=== PATIENT | female | born 2000 | race American Indian/Alaskan Native ===

== ENCOUNTER 2018-07-14 22:56 | Inpatient (IN) | payer MEDICAID, OTHER ==
[2018-07-15] MEDS ORDERED: LACTATED RINGERS 1,000 ML ONE (00:13)
[2018-07-15] MEDS ORDERED: ZOFRAN IV PRN ×2 (00:30→21:27)
[2018-07-15] MEDS ORDERED: XYLOCAINE 2% INFILTRATI ONE (00:30)
[2018-07-15] MEDS ORDERED: AMPICILLIN/NS 2 GM/100 ML 2 GM/100 ML BAG IV ONE (00:30)
[2018-07-15] MEDS ORDERED: BRETHINE SUB-Q PRN (00:30)
[2018-07-15] MEDS ORDERED: SUBLIMAZE IV PRN (00:30)
[2018-07-15] MEDS ORDERED: CERVIDIL VG ONE (00:30)
[2018-07-15] MEDS ORDERED: MINERAL OIL PO PRN (00:30)
[2018-07-15] MEDS ORDERED: PITOCin/NS 30 UNIT/500ML 30 UNITS/500 ML BAG IV SCH ×2 (01:00→09:30)
[2018-07-15] MEDS ORDERED: PITOCin/NS 20 UNIT/1000ML DRIP 20 UNITS/1,000 ML BAG IV SCH ×2 (01:00→20:21)
[2018-07-15 01:02] LABS: Basophils % (Auto) 0.3 % (0.0-1.8); Eosinophils # (Auto) 0.1 K/mm3 (0.0-0.4); Hematocrit 36.2 % (30.3-42.9); Hemoglobin 11.8 gm/dl (10.1-14.3); Lymphocytes # (Auto) 1.5 K/mm3 (1.2-5.4); Lymphocytes % (Auto) 18.5 % (13.4-35.0); Mean Corpuscular HGB Conc 33 % (30-34); Mean Corpuscular Volume 85 fl (79-97); Monocytes # (Auto) 0.4 K/mm3 (0.0-0.8); Monocytes % (Auto) 5.3 % (0.0-7.3); Platelet Count 153 K/mm3 (140-440); Red Blood Count 4.27 M/mm3 (3.65-5.03); Red Cell Distribution Width 16.9 % (13.2-15.2)
[2018-07-15 01:23] LABS: Amorphous Crystals,Urine Few; Bacteria,Urine 1+ /HPF (Negative); Bilirubin,Urine NEG (Negative); Blood,Urine MOD (Negative); Color,Urine Straw (Yellow); Hyaline Casts,Urine 3 /LPF; Mucus,Urine 2+ /HPF; Protein,Urine <15 mg/dL mg/dL (Negative); Urobilinogen,Urine < 2.0 mg/dL (<2.0)
--- NOTE | 2018-07-15 01:27 | History and Physical Report ---
History of Present Illness Date of examination: 07/14/18 (SROM clear fluid) Date of admission: 07/15/18 00:47 History of present illness: @ 38 weeks with SROM 07-14-18 @ 2200 clear fluid Pt was receiving care from in [facility] signed and faxed MED HX: asthma SurgHX: repair of left femur STD: Chlamydia treated Denies: smoking, drinking, drug use Pt denies complications in States she passed her GTT and per pt is GBS negative Past History - Obstetrical History Expected Date of Delivery: 07/27/18 Actual Gestation: 38 Week(s) 2 Day(s) : 1 Para: 0 Hx # Term Pregnancies: 0 Number of Pregnancies: 0 Spontaneous Abortions: 0 Induced : 0 Number of Living Children: 0 Medications and Allergies Allergies Allergy/AdvReac Type Severity Reaction Status Date / Time pineapple Allergy Swelling Verified 07/14/18 23:07 Home Medications Medication Instructions Recorded Confirmed Last Taken Type Vits96/Iron Fum/Folic 1 tab PO QDAY 07/14/18 07/14/18 07/13/18 History [ Tablet] Active Meds: Active Medications Ephedrine Sulfate (Ephedrine Sulfate) 10 mg IV Q2M PRN PRN Reason: Hypotension Fentanyl (Sublimaze) 100 mcg IV Q2H PRN PRN Reason: Labor Pain Ampicillin Sodium (Ampicillin/Ns 1 Gm/50 Ml) 1 gm in 50 mls @ 100 mls/hr IV Q4HR SISSY; Protocol Ampicillin Sodium (Polycillin/Ns 2 Gm/100 Ml) 2 gm in 100 mls @ 100 mls/hr IV ONCE ONE; Protocol Stop: 07/15/18 01:29 Lactated Ringer's (Lactated Ringers) 1,000 mls @ 125 mls/hr IV DIRECT SISSY Oxytocin/Sodium Chloride (Pitocin/Ns 20 Unit/1000ml Drip) 20 units in 1,000 mls @ 125 mls/hr IV DIRECT SISSY Oxytocin/Sodium Chloride (Pitocin/Ns 30 Unit/500ml) 30 units in 500 mls @ 1 mls/hr IV TITR SISSY; Protocol Mineral Oil (Mineral Oil) 30 ml PO QHS PRN PRN Reason: Constipation Ondansetron HCl (Zofran) 4 mg IV Q8H PRN PRN Reason: Nausea And Vomiting Terbutaline Sulfate (Brethine) 0.25 mg SUB-Q ONCE PRN PRN Reason: Hyperstimulation/Hypertonicity - Vital Signs Vital signs: Vital Signs Temp Resp 98.5 F 22 07/14/18 23:07 07/14/18 23:07 Temp Pulse Resp BP Pulse Ox 98.5 F 83 22 111/72 07/14/18 23:07 07/14/18 23:18 07/14/18 23:07 07/14/18 23:18 - Physical Exam Breasts: Positive: deferred Cardiovascular: Regular rate, Normal S1, Normal S2 Lungs: Positive: Normal air movement Abdomen: Positive: normal appearance, soft, normal bowel sounds. Negative: distention, tenderness Genitourinary (Female): Positive: normal external genitalia, normal perenium Vulva: both: normal Vagina: Positive: normal moisture. Negative: discharge Cervix: Negative: lesion, discharge Uterus: Positive: normal size, normal contour Adnexa: both: normal Anus/Rectum: Positive: normal perianal skin, heme negative. Negative: rectal mass, hemorrhoids Extremities: Positive: edema Deep Tendon Reflex Grade: Normal +2 - Obstetrical FHR: category 1 Uterine Contraction Monitor Mode: External Cervical Dilatation: 1 (gross rupture membranes clear) Cervical Effacement Percentage: 30 (US confirms vertex) station: -3 Uterine Contraction Pattern: Regular Uterine Tone Measurement Phase: Resting Uterine Contraction Intensity: Mild Results Result Diagrams: 07/15/18 00:25 Abnormal lab results 07/15/18 Range/Units 00:25 RDW 16.9 H (13.2-15.2) % Seg Neutrophils % 74.9 H (40.0-70.0) % All other labs normal. Assessment and Plan 18yo @ 38 weeks with SROM clear 19 @ 2200 Pt receives care with Dr[address]Duran NGUYEN faxed to [facility] to get records. All orders in EMR. aware of admission
[2018-07-15 01:29] LABS: Hepatitis C Virus Antibody Non-Reactive (NonReactive)
[2018-07-15 01:32] LABS: Amphetamine Screen,Urine PRESUMPTIVE NEGATIVE; Benzodiazepines Screen,Urine PRESUMPTIVE NEGATIVE; Cannabinoid Screen,Urine PRESUMPTIVE NEGATIVE; Cocaine Screen,Urine PRESUMPTIVE NEGATIVE; Methadone Screen,Urine PRESUMPTIVE NEGATIVE; Opiate Screen,Urine PRESUMPTIVE NEGATIVE
[2018-07-15] MEDS: LACTATED RINGERS 1,000 ML IV SCH ×3 (01:39→13:38)
--- NOTE | 2018-07-15 01:46 | Ultrasound Report ---
FINAL REPORT EXAM: US OB CLINICAL INDICATIONS: SROM, PRESENTATION FINDINGS: Real-time limited ultrasound of the pelvis was performed for presentation. There is a single l dada intrauterine gestation in cephalic lie. cardiac activity is present at 149 bpm. IMPRESSION: CEPHALIC LIE
[2018-07-15] MEDS ORDERED: AMPICILLIN/NS 1 GM/50 ML 1 GM/50 ML BAG IV SCH (04:33)
--- NOTE | 2018-07-15 07:49 | Progress Note ---
Assessment and Plan 18 y/o @ 38+3 PPROM. Will pull cervidil, allow meal and AM care, then start pitocin. Will reassess as needed. - Patient Problems (1) 38 weeks gestation of Current Visit: Yes Status: Acute (2) Ruptured, membranes, premature Current Visit: Yes Status: Acute Qualifiers: PROM onset of labor timing: unspecified duration between rupture of membranes and onset of labor PROM gestational age: full term Qualified Code(s): O42.92 - Full-term premature rupture of membranes, unspecified as to length of time between rupture and onset of labor Subjective - Subjective Date of service: 07/15/18 Principal diagnosis: IUP @ 38+3 weeks, PPROM Patient reports: no new complaints Objective - Vital Signs Vital Signs: Vital Signs - 12hr 07/14/18 07/14/18 07/15/18 23:07 23:18 01:41 Temperature 98.5 F 97.0 F L Pulse Rate 83 Respiratory 22 18 Rate Blood Pressure 111/72 07/15/18 07/15/18 01:42 04:00 Temperature 97.7 F Pulse Rate 90 Respiratory 18 Rate Blood Pressure 115/67 - Exam Breasts: normal Cardiovascular: Regular rate Lungs: Normal air movement Abdomen: Present: normal appearance, soft Vulva: both: normal Uterus: Present: normal FHR: auscultation normal, category 1 Uterine Contraction Monitor Mode: External Uterine Contraction Pattern: Irregular Uterine Tone Measurement Phase: Contraction Uterine Contraction Intensity: Mild Extremities: normal - Labs Labs: Abnormal Labs 07/15/18 07/15/18 00:25 01:05 RDW 16.9 H Seg Neutrophils % 74.9 H Urine WBC (Auto) 14.0 H Laboratory Results - last 24 hr 07/15/18 07/15/18 07/15/18 00:25 00:25 00:25 WBC 7.9 RBC 4.27 Hgb 11.8 Hct 36.2 MCV 85 MCH 28 MCHC 33 RDW 16.9 H Plt Count 153 Lymph % (Auto) 18.5 [place] % (Auto) 5.3 Eos % (Auto) 1.0 Baso % (Auto) 0.3 Lymph # 1.5 [place] # 0.4 Eos # 0.1 Baso # 0.0 Seg Neutrophils % 74.9 H Seg Neutrophils # 5.9 Sickle Cell Screen Negative Urine Color Urine Turbidity Urine pH Ur Specific [place] Urine Protein Urine Glucose (UA) Urine Ketones Urine Blood Urine Nitrite Urine Bilirubin Urine Urobilinogen Ur Leukocyte Esterase Urine WBC (Auto) Urine RBC (Auto) U Epithel Cells (Auto) Urine Bacteria (Auto) Amorphous Crystals Hyaline Casts Urine Mucus Urine Opiates Screen Urine Methadone Screen Ur Barbiturates Screen Ur Phencyclidine Scrn Ur Amphetamines Screen U Benzodiazepines Scrn Urine Cocaine Screen U Marijuana (THC) Screen Drugs of Abuse Note Hep Bs Antigen Hepatitis C Antibody Non-reactive HIV 1&2 Antibody Rapid HIV P24 Antigen Rubella IgG Antibody Immune Blood Type O POSITIVE Antibody Screen Negative 07/15/18 07/15/18 07/15/18 00:25 00:25 01:05 WBC RBC Hgb Hct MCV MCH MCHC RDW Plt Count Lymph % (Auto) [place] % (Auto) Eos % (Auto) Baso % (Auto) Lymph # [place] # Eos # Baso # Seg Neutrophils % Seg Neutrophils # Sickle Cell Screen Urine Color Straw Urine Turbidity Slightly cloudy Urine pH 7.0 Ur Specific [place] 1.004 Urine Protein <15 mg/dl Urine Glucose (UA) Neg Urine Ketones Neg Urine Blood Mod Urine Nitrite Neg Urine Bilirubin Neg Urine Urobilinogen < 2.0 Ur Leukocyte Esterase Lg Urine WBC (Auto) 14.0 H Urine RBC (Auto) 12.0 U Epithel Cells (Auto) 2.0 Urine Bacteria (Auto) 1+ Amorphous Crystals Few Hyaline Casts 3 Urine Mucus 2+ Urine Opiates Screen Urine Methadone Screen Ur Barbiturates Screen Ur Phencyclidine Scrn Ur Amphetamines Screen U Benzodiazepines Scrn Urine Cocaine Screen U Marijuana (THC) Screen Drugs of Abuse Note Hep Bs Antigen Non-reactive Hepatitis C Antibody HIV 1&2 Antibody Rapid Non react HIV P24 Antigen Non react Rubella IgG Antibody Blood Type Antibody Screen 07/15/18 01:05 WBC RBC Hgb Hct MCV MCH MCHC RDW Plt Count Lymph % (Auto) [place] % (Auto) Eos % (Auto) Baso % (Auto) Lymph # [place] # Eos # Baso # Seg Neutrophils % Seg Neutrophils # Sickle Cell Screen Urine Color Urine Turbidity Urine pH Ur Specific [place] Urine Protein Urine Glucose (UA) Urine Ketones Urine Blood Urine Nitrite Urine Bilirubin Urine Urobilinogen Ur Leukocyte Esterase Urine WBC (Auto) Urine RBC (Auto) U Epithel Cells (Auto) Urine Bacteria (Auto) Amorphous Crystals Hyaline Casts Urine Mucus Urine Opiates Screen Presumptive negative Urine Methadone Screen Presumptive negative Ur Barbiturates Screen Presumptive negative Ur Phencyclidine Scrn Presumptive negative Ur Amphetamines Screen Presumptive negative U Benzodiazepines Scrn Presumptive negative Urine Cocaine Screen Presumptive negative U Marijuana (THC) Screen Presumptive negative Drugs of Abuse Note Disclamer Hep Bs Antigen Hepatitis C Antibody HIV 1&2 Antibody Rapid HIV P24 Antigen Rubella IgG Antibody Blood Type Antibody Screen
--- NOTE | 2018-07-15 10:57 | Event Note ---
Date: 07/15/18 Nurse called to check on status of induction, pitocin has not yet been started. Advised pitocin needs to be started as it was ordered @ 0900 this morning d/t patient being ruptured and remote from delivery. nurse verbalizes understanding and states she will start the pitocin.
--- NOTE | 2018-07-15 13:26 | Progress Note ---
Assessment and Plan variables continue with ctx, appear to be early. IUPC placed and order for amnioinfusion and more accurate monitoring of ctx. RN to continue titrating pitocin as tolerated by FHT. Patient not tolerating pain with ctx or SVE well. Will begin bolus for epidural. - Patient Problems (1) 38 weeks gestation of Current Visit: Yes Status: Acute (2) Ruptured, membranes, premature Current Visit: Yes Status: Acute Qualifiers: PROM onset of labor timing: unspecified duration between rupture of membranes and onset of labor PROM gestational age: full term Qualified Code(s): O42.92 - Full-term premature rupture of membranes, unspecified as to length of time between rupture and onset of labor Subjective - Subjective Date of service: 07/15/18 Principal diagnosis: IUP @ 38+3 weeks, PPROM Patient reports: loss of fluid, movement normal, contractions Objective - Vital Signs Vital Signs: Vital Signs - 12hr 07/15/18 07/15/18 07/15/18 01:41 01:42 04:00 Temperature 97.0 F L 97.7 F Pulse Rate 90 Respiratory 18 18 Rate Blood Pressure 115/67 07/15/18 07/15/18 07/15/18 11:24 12:02 12:31 Temperature 97.4 F L Pulse Rate 79 87 Respiratory 12 Rate Blood Pressure 119/82 133/79 - Exam Cardiovascular: Regular rate Lungs: Clear to auscultation, Normal air movement Abdomen: Present: normal appearance, soft Vulva: both: normal Uterus: Present: normal FHR: category 2 (variables occuring with ctx, moderate variablity) Uterine Contraction Monitor Mode: Internal Cervical Dilatation: 1.5 Cervical Effacement Percentage: 70 station: -3 Uterine Contraction Pattern: Regular Uterine Tone Measurement Phase: Contraction Uterine Contraction Intensity: Mild Extremities: normal - Labs Labs: Abnormal Labs 07/15/18 07/15/18 00:25 01:05 RDW 16.9 H Seg Neutrophils % 74.9 H Urine WBC (Auto) 14.0 H Laboratory Results - last 24 hr 07/15/18 07/15/18 07/15/18 00:25 00:25 00:25 WBC 7.9 RBC 4.27 Hgb 11.8 Hct 36.2 MCV 85 MCH 28 MCHC 33 RDW 16.9 H Plt Count 153 Lymph % (Auto) 18.5 [place] % (Auto) 5.3 Eos % (Auto) 1.0 Baso % (Auto) 0.3 Lymph # 1.5 [place] # 0.4 Eos # 0.1 Baso # 0.0 Seg Neutrophils % 74.9 H Seg Neutrophils # 5.9 Sickle Cell Screen Negative Urine Color Urine Turbidity Urine pH Ur Specific [place] Urine Protein Urine Glucose (UA) Urine Ketones Urine Blood Urine Nitrite Urine Bilirubin Urine Urobilinogen Ur Leukocyte Esterase Urine WBC (Auto) Urine RBC (Auto) U Epithel Cells (Auto) Urine Bacteria (Auto) Amorphous Crystals Hyaline Casts Urine Mucus Urine Opiates Screen Urine Methadone Screen Ur Barbiturates Screen Ur Phencyclidine Scrn Ur Amphetamines Screen U Benzodiazepines Scrn Urine Cocaine Screen U Marijuana (THC) Screen Drugs of Abuse Note RPR Nonreactive Hep Bs Antigen Hepatitis C Antibody HIV 1&2 Antibody Rapid HIV P24 Antigen Rubella IgG Antibody Blood Type O POSITIVE Antibody Screen Negative 07/15/18 07/15/18 07/15/18 00:25 00:25 00:25 WBC RBC Hgb Hct MCV MCH MCHC RDW Plt Count Lymph % (Auto) [place] % (Auto) Eos % (Auto) Baso % (Auto) Lymph # [place] # Eos # Baso # Seg Neutrophils % Seg Neutrophils # Sickle Cell Screen Urine Color Urine Turbidity Urine pH Ur Specific [place] Urine Protein Urine Glucose (UA) Urine Ketones Urine Blood Urine Nitrite Urine Bilirubin Urine Urobilinogen Ur Leukocyte Esterase Urine WBC (Auto) Urine RBC (Auto) U Epithel Cells (Auto) Urine Bacteria (Auto) Amorphous Crystals Hyaline Casts Urine Mucus Urine Opiates Screen Urine Methadone Screen Ur Barbiturates Screen Ur Phencyclidine Scrn Ur Amphetamines Screen U Benzodiazepines Scrn Urine Cocaine Screen U Marijuana (THC) Screen Drugs of Abuse Note RPR Hep Bs Antigen Non-reactive Hepatitis C Antibody Non-reactive HIV 1&2 Antibody Rapid Non react HIV P24 Antigen Non react Rubella IgG Antibody Immune Blood Type Antibody Screen 07/15/18 07/15/18 01:05 01:05 WBC RBC Hgb Hct MCV MCH MCHC RDW Plt Count Lymph % (Auto) [place] % (Auto) Eos % (Auto) Baso % (Auto) Lymph # [place] # Eos # Baso # Seg Neutrophils % Seg Neutrophils # Sickle Cell Screen Urine Color Straw Urine Turbidity Slightly cloudy Urine pH 7.0 Ur Specific [place] 1.004 Urine Protein <15 mg/dl Urine Glucose (UA) Neg Urine Ketones Neg Urine Blood Mod Urine Nitrite Neg Urine Bilirubin Neg Urine Urobilinogen < 2.0 Ur Leukocyte Esterase Lg Urine WBC (Auto) 14.0 H Urine RBC (Auto) 12.0 U Epithel Cells (Auto) 2.0 Urine Bacteria (Auto) 1+ Amorphous Crystals Few Hyaline Casts 3 Urine Mucus 2+ Urine Opiates Screen Presumptive negative Urine Methadone Screen Presumptive negative Ur Barbiturates Screen Presumptive negative Ur Phencyclidine Scrn Presumptive negative Ur Amphetamines Screen Presumptive negative U Benzodiazepines Scrn Presumptive negative Urine Cocaine Screen Presumptive negative U Marijuana (THC) Screen Presumptive negative Drugs of Abuse Note Disclamer RPR Hep Bs Antigen Hepatitis C Antibody HIV 1&2 Antibody Rapid HIV P24 Antigen Rubella IgG Antibody Blood Type Antibody Screen
[2018-07-15] MEDS ORDERED: NACL 0.9% 1000 ML 1,000 ML VG SCH (14:00)
[2018-07-15] MEDS ORDERED: NARCAN 2 MG/2 ML IV PRN (14:40)
--- NOTE | 2018-07-15 14:40 | Anesthesia Consultation ---
Anesthesia Consult and Med Hx Date of service: 07/15/18 - Airway Anesthetic Teeth Evaluation: Good ROM Head & Neck: Adequate Mental/Hyoid Distance: Adequate Mallampati Class: Class II Intubation Access Assessment: Probably Good - Pre-Operative Health Status ASA Pre-Surgery Classification: ASA2 Proposed Anesthetic Plan: Epidural, Spinal - Pulmonary Hx Asthma: Yes (last attack yrs ago; inhaler used prior to ) COPD: No Hx Pneumonia: No - Cardiovascular System Hx Hypertension: No - Central Nervous System Hx Seizures: No Hx Psychiatric Problems: No - Endocrine Hx Renal Disease: No Hx End Stage Renal Disease: No Hx Hypothyroidism: No Hx Hyperthyroidism: No - Hematic Hx Anemia: Yes (earlier during ) Hx Sickle Cell Disease: No - Other Systems Hx Alcohol Use: No
[2018-07-15] MEDS ORDERED: fentaNYL-BUPIV 2 MCG/ML-0.125% 200 MCG/100 ML BAG EPIDURAL SCH (15:00)
[2018-07-15] MEDS ORDERED: PEPCID IV ONE (16:59)
[2018-07-15] MEDS ORDERED: BICITRA PO ONE (16:59)
[2018-07-15] MEDS ORDERED: REGLAN IV ONE (16:59)
[2018-07-15] MEDS ORDERED: ANCEF/STERILE WATER 2 GM/20 ML 2 GM/20 ML SYRINGE IV NR (17:00)
--- NOTE | 2018-07-15 17:04 | Progress Note ---
Assessment and Plan no change in SVE, FHT continue to have variables with ctx, she did have a prolonged variable that has now recovered. Dr. rahman consulted, plan for primary c/s. Patient is agreeable and states "how soon can we do it, I am ready now?" Pre-op orders in EMR. - Patient Problems (1) 38 weeks gestation of Current Visit: Yes Status: Acute (2) Ruptured, membranes, premature Current Visit: Yes Status: Acute Qualifiers: PROM onset of labor timing: unspecified duration between rupture of membranes and onset of labor PROM gestational age: full term Qualified Code(s): O42.92 - Full-term premature rupture of membranes, unspecified as to length of time between rupture and onset of labor Subjective - Subjective Date of service: 07/15/18 Principal diagnosis: IUP @ 38+3 weeks, PPROM Patient reports: no new complaints (comfortable with epidural) Objective - Vital Signs Vital Signs: Vital Signs - 12hr 07/15/18 07/15/18 07/15/18 11:24 12:02 12:31 Temperature 97.4 F L Pulse Rate 79 87 Respiratory 12 Rate Blood Pressure 119/82 133/79 O2 Sat by Pulse Oximetry 07/15/18 07/15/18 07/15/18 13:32 14:31 14:36 Temperature Pulse Rate 71 65 69 Respiratory Rate Blood Pressure 106/55 110/55 O2 Sat by Pulse 100 Oximetry 07/15/18 07/15/18 07/15/18 14:41 14:42 14:46 Temperature Pulse Rate 69 71 76 Respiratory Rate Blood Pressure O2 Sat by Pulse 98 92 99 Oximetry 07/15/18 07/15/18 07/15/18 14:50 14:51 14:53 Temperature Pulse Rate 76 86 76 Respiratory Rate Blood Pressure 114/67 119/68 O2 Sat by Pulse 99 Oximetry 07/15/18 07/15/18 07/15/18 14:56 14:59 15:01 Temperature Pulse Rate 70 72 66 Respiratory Rate Blood Pressure 127/58 115/59 O2 Sat by Pulse 97 96 Oximetry 07/15/18 07/15/18 07/15/18 15:06 15:08 15:11 Temperature Pulse Rate 69 65 62 Respiratory Rate Blood Pressure 98/54 98/50 O2 Sat by Pulse 97 96 Oximetry 07/15/18 07/15/18 07/15/18 15:16 15:21 15:26 Temperature Pulse Rate 68 62 86 Respiratory Rate Blood Pressure 93/51 O2 Sat by Pulse 96 97 97 Oximetry 07/15/18 07/15/18 07/15/18 15:31 15:36 15:41 Temperature Pulse Rate 66 66 66 Respiratory Rate Blood Pressure O2 Sat by Pulse 97 96 100 Oximetry 07/15/18 07/15/18 07/15/18 15:42 15:46 15:51 Temperature Pulse Rate 68 70 63 Respiratory Rate Blood Pressure 110/54 O2 Sat by Pulse 99 99 Oximetry 07/15/18 07/15/18 07/15/18 15:57 15:58 15:59 Temperature Pulse Rate 73 79 64 Respiratory Rate Blood Pressure 117/66 O2 Sat by Pulse 97 88 Oximetry 07/15/18 07/15/18 07/15/18 16:02 16:07 16:12 Temperature Pulse Rate 62 72 67 Respiratory Rate Blood Pressure O2 Sat by Pulse 100 99 100 Oximetry 07/15/18 07/15/18 07/15/18 16:17 16:22 16:26 Temperature Pulse Rate 65 67 77 Respiratory Rate Blood Pressure O2 Sat by Pulse 100 100 87 Oximetry 07/15/18 07/15/18 07/15/18 16:27 16:32 16:37 Temperature Pulse Rate 68 67 69 Respiratory Rate Blood Pressure O2 Sat by Pulse 100 84 99 Oximetry 07/15/18 07/15/18 07/15/18 16:39 16:42 16:44 Temperature Pulse Rate 70 68 72 Respiratory Rate Blood Pressure 105/61 O2 Sat by Pulse 92 100 Oximetry 07/15/18 07/15/18 07/15/18 16:47 16:48 16:52 Temperature Pulse Rate 78 81 75 Respiratory Rate Blood Pressure O2 Sat by Pulse 100 89 100 Oximetry 07/15/18 16:57 Temperature Pulse Rate 75 Respiratory Rate Blood Pressure O2 Sat by Pulse 99 Oximetry - Exam Breasts: normal Cardiovascular: Regular rate Lungs: Clear to auscultation, Normal air movement Abdomen: Present: normal appearance, soft Vulva: both: normal Uterus: Present: normal FHR: category 2 Uterine Contraction Monitor Mode: Internal Cervical Dilatation: 2.5 Cervical Effacement Percentage: 50 station: -3 Uterine Contraction Frequency (min): 3-4 Uterine Contraction Duration: 60 Uterine Contraction Pattern: Regular Uterine Tone Measurement Phase: Contraction Uterine Contraction Intensity: Moderate Extremities: normal Deep Tendon Reflex Grade: Normal +2 - Labs Labs: Abnormal Labs 07/15/18 07/15/18 00:25 01:05 RDW 16.9 H Seg Neutrophils % 74.9 H Urine WBC (Auto) 14.0 H Laboratory Results - last 24 hr 07/15/18 07/15/18 07/15/18 00:25 00:25 00:25 WBC 7.9 RBC 4.27 Hgb 11.8 Hct 36.2 MCV 85 MCH 28 MCHC 33 RDW 16.9 H Plt Count 153 Lymph % (Auto) 18.5 [place] % (Auto) 5.3 Eos % (Auto) 1.0 Baso % (Auto) 0.3 Lymph # 1.5 [place] # 0.4 Eos # 0.1 Baso # 0.0 Seg Neutrophils % 74.9 H Seg Neutrophils # 5.9 Sickle Cell Screen Negative Urine Color Urine Turbidity Urine pH Ur Specific [place] Urine Protein Urine Glucose (UA) Urine Ketones Urine Blood Urine Nitrite Urine Bilirubin Urine Urobilinogen Ur Leukocyte Esterase Urine WBC (Auto) Urine RBC (Auto) U Epithel Cells (Auto) Urine Bacteria (Auto) Amorphous Crystals Hyaline Casts Urine Mucus Urine Opiates Screen Urine Methadone Screen Ur Barbiturates Screen Ur Phencyclidine Scrn Ur Amphetamines Screen U Benzodiazepines Scrn Urine Cocaine Screen U Marijuana (THC) Screen Drugs of Abuse Note RPR Nonreactive Hep Bs Antigen Hepatitis C Antibody HIV 1&2 Antibody Rapid HIV P24 Antigen Rubella IgG Antibody Blood Type O POSITIVE Antibody Screen Negative 07/15/18 07/15/18 07/15/18 00:25 00:25 00:25 WBC RBC Hgb Hct MCV MCH MCHC RDW Plt Count Lymph % (Auto) [place] % (Auto) Eos % (Auto) Baso % (Auto) Lymph # [place] # Eos # Baso # Seg Neutrophils % Seg Neutrophils # Sickle Cell Screen Urine Color Urine Turbidity Urine pH Ur Specific [place] Urine Protein Urine Glucose (UA) Urine Ketones Urine Blood Urine Nitrite Urine Bilirubin Urine Urobilinogen Ur Leukocyte Esterase Urine WBC (Auto) Urine RBC (Auto) U Epithel Cells (Auto) Urine Bacteria (Auto) Amorphous Crystals Hyaline Casts Urine Mucus Urine Opiates Screen Urine Methadone Screen Ur Barbiturates Screen Ur Phencyclidine Scrn Ur Amphetamines Screen U Benzodiazepines Scrn Urine Cocaine Screen U Marijuana (THC) Screen Drugs of Abuse Note RPR Hep Bs Antigen Non-reactive Hepatitis C Antibody Non-reactive HIV 1&2 Antibody Rapid Non react HIV P24 Antigen Non react Rubella IgG Antibody Immune Blood Type Antibody Screen 07/15/18 07/15/18 01:05 01:05 WBC RBC Hgb Hct MCV MCH MCHC RDW Plt Count Lymph % (Auto) [place] % (Auto) Eos % (Auto) Baso % (Auto) Lymph # [place] # Eos # Baso # Seg Neutrophils % Seg Neutrophils # Sickle Cell Screen Urine Color Straw Urine Turbidity Slightly cloudy Urine pH 7.0 Ur Specific [place] 1.004 Urine Protein <15 mg/dl Urine Glucose (UA) Neg Urine Ketones Neg Urine Blood Mod Urine Nitrite Neg Urine Bilirubin Neg Urine Urobilinogen < 2.0 Ur Leukocyte Esterase Lg Urine WBC (Auto) 14.0 H Urine RBC (Auto) 12.0 U Epithel Cells (Auto) 2.0 Urine Bacteria (Auto) 1+ Amorphous Crystals Few Hyaline Casts 3 Urine Mucus 2+ Urine Opiates Screen Presumptive negative Urine Methadone Screen Presumptive negative Ur Barbiturates Screen Presumptive negative Ur Phencyclidine Scrn Presumptive negative Ur Amphetamines Screen Presumptive negative U Benzodiazepines Scrn Presumptive negative Urine Cocaine Screen Presumptive negative U Marijuana (THC) Screen Presumptive negative Drugs of Abuse Note Disclamer RPR Hep Bs Antigen Hepatitis C Antibody HIV 1&2 Antibody Rapid HIV P24 Antigen Rubella IgG Antibody Blood Type Antibody Screen
--- NOTE | 2018-07-15 17:33 | Event Note ---
Date: 07/15/18 Discussed with patient indications for operative delivery. Patient informed the risks of the surgery include bleeding possibly bleeding heavy enough to require blood transfusion, infection possible damage to bowel bladder ureter. All questions answered. Patient agrees to proceed
[2018-07-15] MEDS ORDERED: XYLOCAINE MPF 2% ONE (18:14)
[2018-07-15] MEDS ORDERED: ASTRAMORPH PF 10MG/10ML ONE (18:15)
[2018-07-15] MEDS ORDERED: NEO SYNEPHRINE ONE (18:36)
--- NOTE | 2018-07-15 19:03 | Operative Report ---
Operative Report Operative Report: Date of procedure: 07/15/2018 Pre-operative diagnosis: Intrauterine at 38 weeks with premature rupture of membranes and nonreassuring tracing remote from delivery Post-operative diagnosis: Same Procedure name(s): Primary low transverse section Surgeon: Daryl Frank MD Director Emergency Services: Anesthesia: Spinal EBL: 600 Complications: None Findings: Normal uterus tubes and ovaries bilaterally. Male Apgars 8 at 1 minute and 9 at 5 minutes Specimen(s): None Procedure: The patient was brought to the operating room. Her epidural was dosed. She was then placed in left lateral tilt. Prepped and draped in the usual sterile manner. After testing for adequate anesthesia level, a Pfannenstiel incision was made. This incision was taken down to the fascia. The fascia was then nicked in the midline. This incision was extended out laterally with Ha scissors. The fascia was then sharply and bluntly from the underlying rectus muscles. The rectus muscles were bluntly and sharply . The peritoneum was then entered with the assistant boiler operator's fingers. This incision was spread vertically with care not to damage the bladder below. The bladder flap was then formed sharply and bluntly with Metzenbaum scissors. The Evangelist self-retaining tractor was then placed without any difficulty. A transverse incision was made in lower uterine segment. This incision was extended laterally with the operators fingers. The amniotic sac was then entered bluntly with the assistant boiler operator's fingers. The was delivered from the vertex position. Bulb suction on the mother's abdomen. Cord was double clamped and cut. The was then passed to the nursery personnel who were in attendance. The above scores were given by the nursery personnel. The placenta was then bluntly removed. The uterus was then externalized and wiped clean the remaining products. The uterine incision was closed in layers. The first incision was closed in a locking manner using 0 Vicryl. This was followed by imbricating stitch also with 0 Vicryl. This closure was hemostatic. The bladder flap was copiously irrigated and found to be hemostatic. The pelvis was copiously irrigated and found to be hemostatic. The uterus was then placed back to the patient's abdomen. The retractors were removed. The rectus muscles were inspected and found to be hemostatic. The fascia was then closed in a running manner using 0 Vicryl. This incision was hemostatic irrigation Bovie. The skin was reapproximated with 4-0 Vicryl subcuticularly. The patient tolerated procedure well. Her urine was clear. The infant was admitted to the [facility]. The patient was accompanied to recovery room in good condition. Instrument count correct times 3.
[2018-07-15] MEDS ORDERED: TORADOL IV ONE ×2 (19:43→20:00)
[2018-07-15] MEDS ORDERED: MARCAINE 0.5% INFILTRATI ONE (19:54)
[2018-07-15] MEDS ORDERED: DECADRON ONE (19:55)
[2018-07-15] MEDS ORDERED: VERSED ONE (20:07)
[2018-07-15] MEDS ORDERED: LANSINOH TP PRN (20:21)
[2018-07-15] MEDS ORDERED: NARCAN 0.4 MG/1 ML IV PRN (20:21)
[2018-07-15] MEDS ORDERED: SODIUM CHLORIDE FLUSH SYRINGE 10 ML IV NR (20:21)
[2018-07-15] MEDS ORDERED: TUCKS PAD TP PRN (20:21)
[2018-07-15] MEDS ORDERED: NORCO 5/325 PO PRN (20:21)
[2018-07-15] MEDS ORDERED: D5LR 1,000 ML IV SCH (20:21)
--- NOTE | 2018-07-15 20:49 | Progress Note ---
Subjective Date of service: 07/15/18 (Block Note) Principal diagnosis: IUP @ 38+3 weeks, PPROM Interval history: 18 y/o patient 1 hour s/p uncomplicated for term . Pt c/o 03/15 abd pain despite intrathecal duramorph intraop and ketorolac IV. Provided informed consent for bilateral quadratus lumborum block. Bilateral QL block performed with 21ga b-bevel needle after chlorhexidine prep under ultrasound guidance. Images saved to memory. Pt tolerated well. No heme, no paresthesia. Pain beginning to improve before leaving bedside. Will monitor for 15 min then transfer to . 30 ml 0.25% Bupivacaine with 4mg decadron used on each side. Objective - Constitutional Vitals: Vital Signs - 12hr 07/15/18 07/15/18 07/15/18 11:24 12:02 12:31 Temperature 97.4 F L Pulse Rate 79 87 Respiratory 12 Rate Blood Pressure 119/82 133/79 Blood Pressure [Right] O2 Sat by Pulse Oximetry 07/15/18 07/15/18 07/15/18 13:32 14:31 14:36 Temperature Pulse Rate 71 65 69 Respiratory Rate Blood Pressure 106/55 110/55 Blood Pressure [Right] O2 Sat by Pulse 100 Oximetry 07/15/18 07/15/18 07/15/18 14:41 14:42 14:46 Temperature Pulse Rate 69 71 76 Respiratory Rate Blood Pressure Blood Pressure [Right] O2 Sat by Pulse 98 92 99 Oximetry 07/15/18 07/15/18 07/15/18 14:50 14:51 14:53 Temperature Pulse Rate 76 86 76 Respiratory Rate Blood Pressure 114/67 119/68 Blood Pressure [Right] O2 Sat by Pulse 99 Oximetry 07/15/18 07/15/18 07/15/18 14:56 14:59 15:01 Temperature Pulse Rate 70 72 66 Respiratory Rate Blood Pressure 127/58 115/59 Blood Pressure [Right] O2 Sat by Pulse 97 96 Oximetry 07/15/18 07/15/18 07/15/18 15:06 15:08 15:11 Temperature Pulse Rate 69 65 62 Respiratory Rate Blood Pressure 98/54 98/50 Blood Pressure [Right] O2 Sat by Pulse 97 96 Oximetry 07/15/18 07/15/18 07/15/18 15:16 15:21 15:26 Temperature Pulse Rate 68 62 86 Respiratory Rate Blood Pressure 93/51 Blood Pressure [Right] O2 Sat by Pulse 96 97 97 Oximetry 07/15/18 07/15/18 07/15/18 15:31 15:36 15:41 Temperature Pulse Rate 66 66 66 Respiratory Rate Blood Pressure Blood Pressure [Right] O2 Sat by Pulse 97 96 100 Oximetry 07/15/18 07/15/18 07/15/18 15:42 15:46 15:51 Temperature Pulse Rate 68 70 63 Respiratory Rate Blood Pressure 110/54 Blood Pressure [Right] O2 Sat by Pulse 99 99 Oximetry 07/15/18 07/15/18 07/15/18 15:57 15:58 15:59 Temperature Pulse Rate 73 79 64 Respiratory Rate Blood Pressure 117/66 Blood Pressure [Right] O2 Sat by Pulse 97 88 Oximetry 07/15/18 07/15/18 07/15/18 16:02 16:07 16:12 Temperature Pulse Rate 62 72 67 Respiratory Rate Blood Pressure Blood Pressure [Right] O2 Sat by Pulse 100 99 100 Oximetry 07/15/18 07/15/18 07/15/18 16:17 16:22 16:26 Temperature Pulse Rate 65 67 77 Respiratory Rate Blood Pressure Blood Pressure [Right] O2 Sat by Pulse 100 100 87 Oximetry 07/15/18 07/15/18 07/15/18 16:27 16:32 16:37 Temperature Pulse Rate 68 67 69 Respiratory Rate Blood Pressure Blood Pressure [Right] O2 Sat by Pulse 100 84 99 Oximetry 07/15/18 07/15/18 07/15/18 16:39 16:42 16:44 Temperature Pulse Rate 70 68 72 Respiratory Rate Blood Pressure 105/61 Blood Pressure [Right] O2 Sat by Pulse 92 100 Oximetry 07/15/18 07/15/18 07/15/18 16:47 16:48 16:52 Temperature Pulse Rate 78 81 75 Respiratory Rate Blood Pressure Blood Pressure [Right] O2 Sat by Pulse 100 89 100 Oximetry 07/15/18 07/15/18 07/15/18 16:57 17:02 19:04 Temperature 97.6 F Pulse Rate 75 77 74 Respiratory 20 Rate Blood Pressure Blood Pressure 103/55 [Right] O2 Sat by Pulse 99 85 96 Oximetry 07/15/18 07/15/18 19:19 19:55 Temperature Pulse Rate 67 Respiratory 14 15 Rate Blood Pressure Blood Pressure 102/60 [Right] O2 Sat by Pulse 99 Oximetry - Labs CBC & Chem 7: 07/15/18 00:25 Labs: Abnormal lab results 07/15/18 07/15/18 Range/Units 00:25 01:05 RDW 16.9 H (13.2-15.2) % Seg Neutrophils % 74.9 H (40.0-70.0) % Urine WBC (Auto) 14.0 H (0.0-6.0) /HPF
[2018-07-15] MEDS: ANCEF/NS 1 GM/50 ML 1 GM/50 ML BAG IV SCH (22:09)
[2018-07-15] MEDS ORDERED: BENADRYL IV PRN (23:53)
[2018-07-16] MEDS: ANCEF/NS 1 GM/50 ML 1 GM/50 ML BAG IV SCH (04:24)
[2018-07-16 08:13] LABS: Hematocrit 32.6 % (30.3-42.9); Hemoglobin 10.7 gm/dl (10.1-14.3)
[2018-07-16] MEDS: PRENATAL VITAMIN PO SCH (10:04)
[2018-07-16] MEDS: FEOSOL PO SCH (10:04)
--- NOTE | 2018-07-16 15:12 | Progress Note ---
Assessment and Plan 18 y.o. S/p c/s POD 1. reports feeling well, bleeding is minimal, fundus is firm, and pain is well controlled. Dressing remains in place, dry and intact, to be removed when patient showers today. No complaints voiced. VSSAF. Breast feeding going well. Reports baby boy is doing well, declines circumcision. Patient would not like control post delivery. Subjective - Subjective Date of service: 07/16/18 Principal diagnosis: IUP @ 38+3 weeks, PPROM Patient reports: appetite normal, voiding normally, ambulating normally [place]: doing well Objective - Vital Signs Latest vital signs: Vital Signs Temp Pulse Resp BP BP Pulse Ox 07/16/18 11:47 98.5 F 62 16 106/52 07/16/18 08:50 98.3 F 60 16 108/52 07/16/18 04:00 98.4 F 74 16 114/63 07/16/18 00:00 98.7 F 71 18 99/61 07/15/18 21:00 98.6 F 74 16 116/64 07/15/18 20:04 97.5 F L 07/15/18 19:55 15 07/15/18 19:19 67 14 102/60 99 07/15/18 19:04 97.6 F 74 20 103/55 96 07/15/18 17:02 77 85 07/15/18 16:57 75 99 07/15/18 16:52 75 100 07/15/18 16:48 81 89 07/15/18 16:47 78 100 07/15/18 16:44 72 105/61 07/15/18 16:42 68 100 07/15/18 16:39 70 92 07/15/18 16:37 69 99 07/15/18 16:32 67 84 07/15/18 16:27 68 100 07/15/18 16:26 77 87 07/15/18 16:22 67 100 07/15/18 16:17 65 100 07/15/18 16:12 67 100 07/15/18 16:07 72 99 07/15/18 16:02 62 100 07/15/18 15:59 64 117/66 07/15/18 15:58 79 88 07/15/18 15:57 73 97 07/15/18 15:51 63 99 07/15/18 15:46 70 99 01/10/19 15:42 68 110/54 07/15/18 15:41 66 100 07/15/18 15:36 66 96 07/15/18 15:31 66 97 07/15/18 15:26 86 93/51 97 07/15/18 15:21 62 97 07/15/18 15:16 68 96 07/15/18 15:11 62 96 07/15/18 15:08 65 98/50 Intake and Output 07/15/18 07/16/18 07/16/18 23:59 07:59 15:59 Intake Total 1652 360 Output Total 400 1800 900 Balance 1252 -1800 -540 Intake: IV 1352 ANCEF/NS 1 GM/50 ML 1 gm 50 In 50 ml @ 100 mls/hr IV Q8H SISSY Rx#:[id number] PITOCin/NS 30 UNIT/500ML 2 30 units In 500 ml @ 4 mls/hr IV TITR SISSY Rx#: [id number] Oral 120 Intake, Free Water 300 240 Output: Urine 400 1800 900 Indwelling Catheter 1800 900 Other: Total, Intake Amount 120 Total, Output Amount 1000 900 Voiding Method Toilet Estimated Blood Loss 300 - Exam Breasts: Present: normal Cardiovascular: Present: Regular rate Lungs: Present: Clear to auscultation Abdomen: Present: normal appearance, soft, normal bowel sounds Vulva: both: normal Uterus: Present: normal, firm Extremities: Present: normal Incision: Present: dry (dressing in place. dry and intact. )
[2018-07-16] MEDS: NORCO 5/325 PO PRN (18:04)
[2018-07-16] MEDS: IBUPROFEN PO PRN (22:40)
[2018-07-16] MEDS: MYLICON PO PRN (23:04)
[2018-07-17] MEDS: NORCO 5/325 PO PRN (07:03)
[2018-07-17] MEDS: IBUPROFEN PO PRN (07:05)
[2018-07-17] MEDS: MYLICON PO PRN (07:06)
[2018-07-17] MEDS: FEOSOL PO SCH (11:16)
[2018-07-17] MEDS: PRENATAL VITAMIN PO SCH (11:17)
--- NOTE | 2018-07-17 12:45 | Discharge Summary ---
Providers - Providers Date of Admission: 07/15/18 00:47 Date of discharge: 07/17/18 Attending physician: LUIS FERNANDO SLATER Primary care physician: OBJECTIVE C DEVELOPER Hospitalization Reason for admission: rupture of membranes, IUP at term Delivery: Procedure: section Incision: normal, dry, intact Other procedures: none complications: none Discharge diagnosis: IUP at term delivered [place] baby: male Hospital course: Please see H&P for details patient was admitted on with a rupture membranes attempt to augment labor resulted in nonreassuring heart tones tracing necessitating a delivery.Patient was underwent above procedure without complications. Her post operative course was benign she was afebrile throughout. Patient postoperative day 1 hematocrit was in an acceptable range. Patient had no orthostatic symptoms. Patient was tolerating regular diet and voiding without difficulty at time of discharge. Patient incision was healing well without evidence of infection. Condition at discharge: Good Disposition: DC-01 TO HOME OR SELFCARE - Discharge Diagnoses (1) delivery delivered Status: Acute (2) Non-reassuring electronic monitoring tracing Status: Resolved (3) 38 weeks gestation of Status: Acute (4) Ruptured, membranes, premature Status: Acute Qualifiers: PROM onset of labor timing: unspecified duration between rupture of membranes and onset of labor PROM gestational age: full term Qualified Code(s): O42.92 - Full-term premature rupture of membranes, unspecified as to length of time between rupture and onset of labor Plan - Discharge Medications Prescriptions: Ferrous Sulfate [Feosol 325 MG tab] 325 mg PO BID #60 tablet Ibuprofen [Motrin 800 MG tab] 800 mg PO Q6H PRN #30 tablet PRN Reason: Pain oxyCODONE /ACETAMINOPHEN [Percocet 5/325 mg] 1 - 2 tab PO Q4H PRN #30 tablet PRN Reason: Pain, Moderate - Provider Discharge Summary Activity: routine, no sex for 6 weeks, no heavy lifting 4 weeks, no strenuous exercise Diet: routine Instructions: routine Additional instructions: [] Smoking cessation referral if applicable(refer to patient education folder for contact #) [] Refer to [facility] Booklet Call your doctor immediately for: * Fever > 100.5 * Heavy vaginal bleeding ( >1 pad per hour) * Severe persistent headache * Shortness of breath * Reddened, hot, painful area to leg or breast * Drainage or odor from incision. * Keep incision clean and dry at all times and follow doctor's instructions regarding bathing/showering Patient desires to follow up with her sprinkler inspector she she was seen during her , Dr Yen. She will contact him for a follow-up. - Follow up plan Follow up: PRIMARY CARE, [Primary Care Provider] - 7 Days
[2018-07-17 17:01] VITALS: BP 111/53
== END 2018-07-17 17:40 | disposition home or self-care (01) | DRG 766 ==
LOC: TRG 22:56 → LD 07-15 00:47 → APU 07-15 19:21 → OB 07-15 21:16
PROVIDERS: ADMIT Obstetrics & Gynecology; ATTEND Obstetrics & Gynecology
PROC: 10D00Z1 Extraction of Products of Conception, Low, Open Approach (ICD-10-PCS; principal; 2018-07-15)
DX: O76 Abnormality in fetal heart rate and rhythm complicating labor and delivery (principal); Z3A.38 38 weeks gestation of pregnancy; Z37.0 Single live birth; O42.92 Full-term premature rupture of membranes, unspecified as to length of time between rupture and onset of labor; O99.52 Diseases of the respiratory system complicating childbirth; J45.909 Unspecified asthma, uncomplicated
CPT/HCPCS: 36415; 76815; 80307; 81001; 85014; 85018; 85025; 85660; 86592; 86706; 86762; 86803; 86850; 86900; 86901; 87806; G0378; J0290; J0690; J1100; J1200; J1885; J2250; J2274; J2370; J2405; J2590; J2765; J3010; J7120; J7121